=== PATIENT | female | born 1970 | race Hispanic/Latino ===

== ENCOUNTER 2022-02-03 11:44 | Emergency (ER) | payer OTHER ==
[~2022-02-03] VITALS: Ht 160 cm; Wt 75.7 kg
[2022-02-03] MEDS ORDERED: MECLIZINE HCL 12.5 MG TAB PO ONE (12:00)
[2022-02-03 12:09] LABS: BASOPHILS % 0.3 % (0.0-1.0); EOSINOPHILS % 0.4 % (0.0-6.0); HEMATOCRIT 42.5 % (34.2-44.1); HEMOGLOBIN 14.1 g/dL (12.0-16.0); LYMPHOCYTES # (AUTO) 0.8 (1.0-3.2); LYMPHOCYTES % 11.3 % (18.0-39.1); MEAN CORPUSCULAR HEMOGLOBIN 30.4 pg (28-32); MEAN CORPUSCULAR HGB CONC 33.2 g/dL (31-35); MEAN CORPUSCULAR VOLUME 91.6 fL (81-99); MONOCYTES # (AUTO) 0.3 (0.2-0.8); MONOCYTES % 3.4 % (4.4-11.3); NEUTROPHILS # (AUTO) 6.2 (2.1-6.9); NEUTROPHILS % 84.3 % (38.7-80.0); PLATELET COUNT 265 x10e3/uL (140-360); RED BLOOD COUNT 4.64 x10e6/uL (3.6-5.1); RED CELL DISTRIBUTION WIDTH 11.9 % (11.7-14.4)
[2022-02-03] MEDS ORDERED: DIAZEPAM 5 MG TAB PO ONE (12:15)
[2022-02-03 12:27] LABS: ALBUMIN 4.5 g/dL (3.5-5.0); ALBUMIN/GLOBULIN RATIO 1.6 (0.8-2.0); ANION GAP 12.1 mmol/L (8-16); CALCIUM 9.7 mg/dL (8.4-10.2); CREATININE, SERUM 0.73 mg/dL (0.57-1.11); POTASSIUM 4.1 mmol/L (3.5-5.1)
[2022-02-03] MEDS ORDERED: MECLIZINE HCL12.5 MG PO (12:51)
== END 2022-02-03 15:00 | disposition home or self-care (01) ==
LOC: ER 11:55
DX: H81.10 Benign paroxysmal vertigo, unspecified ear (principal); R94.31 Abnormal electrocardiogram [ECG] [EKG]
CPT/HCPCS: 36415; 80053; 85025; 93005; 99284; J8597

== ENCOUNTER → 2025-02-06 | Day surgery (SDC) | payer OTHER ==
[~2025-02-06] MED LIST: B12 ACTIVE1000 MCG PO; FENTANYL CITRATE/PF 100MCG/2 ML INJ ONE; HYOSCYAMINE SULFATE 0.5 MG/ML INJ ONE; LEVOTHYROXINE112 MCG PO; LIDOCAINE HCL 2% LOCAL INJ 5 ML SDV VIAL INJ ONE; MECLIZINE HCL12.5 MG PO; MECLIZINE HCL25 MG PO; PROPOFOL IV EMULSION 50 ML IV ONE; PROPRANOLOL HCL10 MG PO; SODIUM CHLORIDE 0.9% 100 ML ONE; VASOTEC10 M1 PO; VITAMIN D3 COM1 EACH PO
[2025-02-06] MEDS: LACTATED RINGER'S 1,000 ML ONE (09:53)
[2025-02-06 11:33] VITALS: TEMP 97.6
[2025-02-06 12:05] VITALS: BP 118/69; PULSE 74; RESP 16; O2SAT 98
== END | disposition home or self-care (01) ==
LOC: OR 08:19
PROVIDERS: ATTEND Internal Medicine Gastroenterology
DX: Z12.11 Encounter for screening for malignant neoplasm of colon (principal); K64.8 Other hemorrhoids; I49.9 Cardiac arrhythmia, unspecified; I10 Essential (primary) hypertension; H81.10 Benign paroxysmal vertigo, unspecified ear; E03.9 Hypothyroidism, unspecified; Z79.890 Hormone replacement therapy; Z79.899 Other long term (current) drug therapy; Z01.810 Encounter for preprocedural cardiovascular examination; Z01.818 Encounter for other preprocedural examination
CPT/HCPCS: 45378; 81025; 93005; J1980; J2003; J2704; J3010; J7050; J7121